=== PATIENT | male | born 1995 | race Two or more races ===

== ENCOUNTER 2018-12-28 10:25 | Emergency (ER) | payer OTHER ==
[2018-12-28 10:36] VITALS: BP 131/68
--- NOTE | 2018-12-28 10:37 | ER Document Report ---
HPI - HPI Time Seen by Provider: 12/28/18 10:32 Notes: Patient is a 23-year-old male who presents for wound dressing change of a pilonidal abscess that was incised, drained, and packed. This occurred 4 days ago at [facility]. He has not had any changes in symptoms. He has been able to eat and drink without difficulty. He is urinating normally and having normal bowel movements. Denies drug allergies. Denies any headache, fever, neck pain, URI, sore throat, chest pain, palpitations, syncope, cough, shortness of breath, wheeze, dyspnea, abdominal pain, nausea/vomiting/diarrhea, urinary retention, dysuria, hematuria, or rash. - ROS Systems Reviewed and Negative: Yes All other systems reviewed and negative Past Medical History - Social History Smoking Status: Never Smoker Family History: Reviewed & Not Pertinent Vertical Provider Document - CONSTITUTIONAL Agree With Documented VS: Yes Notes: PHYSICAL EXAMINATION: GENERAL: Well-appearing, well-nourished and in no acute distress. LUNGS: Breath sounds clear to auscultation bilaterally and equal. No wheezes rales or rhonchi. HEART: Regular rate and rhythm without murmurs, rubs, gallops. NEUROLOGICAL: Normal speech, normal gait. PSYCH: Normal mood, normal affect. SKIN: buttock: packing noted in place s/p I&D of pilonidal abscess. There is mild erythema and mild tenderness, but no significant purulence or streaks. Discharge - Discharge Clinical Impression: Encounter for dressing of wound Condition: Stable Disposition: HOME, SELF-CARE Additional Instructions: Keep the skin clean Wash with soap and water Tylenol/ibuprofen if needed Triple antibiotic ointment daily Epsom salt soaks Take medication as directed Monitor for any worsening symptoms Recheck with your PCM in 3-5 days Keep appointment with surgeon Return to the ED with any worsening symptoms and/or development of fever, headache, chest pain, palpitations, syncope, shortness of breath, trouble breathing, abdominal pain, n/v/d, abscess, purulent discharge, red streaks, worsening swelling, or other worsening symptoms that are concerning to you. Forms: Elevated Blood Pressure
== END 2018-12-28 11:00 | disposition home or self-care (01) ==
LOC: ER 10:25
DX: L05.01 Pilonidal cyst with abscess (principal)
CPT/HCPCS: 99282; A6266